=== PATIENT | male | born 2000 | race Caucasian/White ===

== ENCOUNTER 2025-03-17 10:41 | Outpatient (CLI) | payer OTHER, SELFPAY ==
--- OUTSIDE RECORDS SUMMARY | 2025-03-17 11:23 | XMS_ITS | Clinical Summary ---
Author Organization [facility] Address [address] [place] [address] Care Team Providers Care Consulting Group Analyst Name Role Phone Unknown, Notinfile Primary Care Provider Unavail able Allergies No known active allergies Medications No known medications Active Problems Problem Noted Date Diagnosed Date Peritonsillar abscess 10/31/2023 Medical History Medical History Date Comments Adhd Social History Tobacco Use Types Packs/Day Years Used Date Smoking Tobacco: Never Smokeless Tobacco: Never Tobacco Cessation:Counseling Given: Not Answered [facility] Utilities Answer Date Recorded In the past 12 months has Connected, eyeQ, oil, or water Docur[employer] threatened to shut off services in your home? No 11/01/2023 Social Connection and Isolation Panel Answer Date Recorded In a typical week, how many times do you talk on the phone with family, friends, or neighbors? More than three times a week 11/01/2023 How often do you get togethe r with friends or relatives? More than three times a week 11/01/2023 How often do you attend chur ch or episcopal services? Never 11/01/2023 Do you belong to any clubs o r organizations such as gnosticist groups, unions, fraternal or athletic groups, or school groups? No 11/01/2023 How often do you attend meet ings of the clubs or organizations you belong to? Never 11/01/2023 Are you , , di vorced, , never , or living with a partner? Living with partner 11/01/2023 AUDIT-C Answer Date Recorded Q1: How often do you have a drink containing alcohol? Never 10/31/2023 Q2: How many drinks containi ng alcohol do you have on a typical day when you are drinking? Patient does not drink Q3: How often do you have si x or more drinks on one occasion? Never 10/31/2023 Overall Financial Resource Strain (CARDIA) Answe r Date Recorded How hard is it for you to pa y for the very basics like food, housing, medical care, and heating? Not hard at all 11/01/2023 Hunger Vital Sign Answer Date Recorded Within the past 12 months, y ou worried that your food would run out before you got the money to buy more. Never true 11/01/19 24 Within the past 12 months, t he food you bought just didn't last and you didn't have money to get more. Never true 11/01/2023 PRAPARE - Transportation Answer Date Re corded In the past 12 months, has l ack of transportation kept you from medical appointments or from getting medications? No 10/10 In the past 12 months, has l ack of transportation kept you from meetings, work, or from getting things needed for daily living? No 11/01/2023 Housing Stability Vital Sign Answer Bonifacio e Recorded In the last 12 months, was t here a time when you were not able to pay the mortgage or rent on time? No 11/01/2023 In the past 12 months, how m any times have you moved where you were living? 1 11/01/2023 At any time in the past 12 m [facility], were you homeless or living in a fdc (including now)? No 11/01/2023 Personal Safety Answer Date Recorded Have you ever been in or are you currently in a harmful physical or emotional relationship or is someone making you feel afraid or unsafe? Yes 10/31/2023 Sex and Gender Information Value Date Recorded Sex Assigned at Not on file Legal Sex Male 12:10 AM CDT Gender Identity Not on file Sexual Orientation Not on file Last Filed Vital Signs Vital Sign Reading Time Taken Comments Blood Pressure 147/71 11/01/2023 7:19 PM CDT Pulse 70 11/01/2023 8:05 PM CDT Temperature 36.6 C (97.9 F) 11/01/2023 7:19 PM CDT Respiratory Rate 18 11/01/2023 7:19 PM CDT Oxygen Saturation 100% 11/01/2023 7:19 PM CDT Inhaled Oxygen Concentration - - Weight 103.8 kg (228 lb 12.8 oz) 10/31/2023 7:48 AM CDT Height 177.8 cm (5' 10) 10/31/2023 7:48 AM CDT Body Mass Index 32.83 10/31/2023 7:48 AM CDT Plan of Treatment Health Maintenance Due Date Last Done Comments Depression Screening 2002 Regular Well Visit/Exam 18-64 2020 DTaP/Tdap/Td Vaccine (7 - Td or Tdap) 12/20/2022 12/20/2012, 12/22/2007, 02/16/2004, Additional history exists Influenza Vaccine (#1) 2025 , 07/07/2019, 04/14/2018, Additional history exists Hepatitis B Screening Completed 03/30/2003 , 03/30/2003, 2002, Additional history exists Pneumococcal vaccine <65 Completed 005, 03/30/2003, 2002, Additional history exists Varicella Vaccines Completed 12/22/2007, 02/16/2004 HPV Vaccines Completed 04/17/2015, 10/2014, 03/15/2014 Meningococcal B Vaccine Completed 06/03/2018, 04/28 Hepatitis C Screening Completed 10/31/2023 Procedures Procedure Name Priority Date/Time Associated Diagnosis Comments HEPATITIS PANEL, ACUTE Add-On 10/31/2023 12:59 PM CDT from Last 3 Months or Most Recently Relevant to Health Maintenance Results * Hepatitis panel, acute Blood (10/31/2023 12:59 PM CDT) Hep A IgM Nonreactive Nonreactive Comment: Interpretive Data: If Hep A IgM Ab is reported as Equivocal, a new sample should be drawn in two weeks for testing. Current interpretive data was last revised on 19. Hep B core IgM Nonreactive Nonreactive JACK Comment: Interpretive Data If HepB Core IgM Ab is reported as Equivocal, a new sample should be drawn in two weeks for testing. Current interpretive data was last revised on 19. Hep C Ab Nonreactive Nonreactive JACK Comment: Antibodies to HCV not detected. Does NOT exclude the possibility of recent exposure to HCV. Current interpretive data was last revised on 22 Interpretive Data Nonreactive: Antibodies to HCV not detected. Does NOT exclude the possibility of recent exposure to HCV. Equivocal: Equivocal for HCV antibodies. Supplemental molecular testing will be automatically performed to determine infection status in accordance with current CDC screening recommendations. Reactive: Positive for HCV antibodies. This may represent current or past HCV infection. Supplemental molecular testing will be automatically performed to determine current infection status in accordance with current CDC screening recommendations. Interpretive data was last revised on 2019. HepBsAg Nonreactive Nonreactive JACK CONTEH Blood 10/31/2023 12:5 9 PM CDT 10/31/2023 1:06 PM CDT Marianne Self NP LAB MICROBIOLOGY - G ENERAL ORDERABLES Final Result JACK CONTEH [address] [facility] Department [place] [address] from Last 3 Months or Most Recently Relevant to Health Maintenance Insurance Advance Directives For more information, please contact: [phone] * Full Code (Latest Code Status on File) Date Activated Date Inactivated Comments 10/31/2023 6:52 AM 11/02/2023 3:51 AM Care Teams Consulting Group Analyst Relationship Specialty Start Date End Date Unknown, Notinfile PCP - General 10/31/23
--- OUTSIDE RECORDS SUMMARY | 2025-03-17 11:23 | XMS_ITS | Patient Health Record ---
Author Organization [facility] Address [address] [address] Care Team Providers Care Post Hole Digging Machine Operator Name Role Phone Sanam Khan Unavailable [phone] Reason For Referral No Information Medications Medication SIG (Take, Route, Frequency, Duration) Notes Start Date End Date Status Adderall 20 MG Tablet take 1 tablet by o ral route 3x a day at 7 am, noon and 4pm Oral ([facility]) 12/02/2013 Active Amoxicillin 500 MG Tablet take 1 tablet (500MG) by oral route 3 times every day for 1 week Oral ([facility]) 10/26/2013 Active RisperDAL 0.25 MG Tablet take 1 Tablet b y oral route 2 times every day Oral ([facility]) 10/26/2013 Active KP Melatonin 3 MG Tablet take one tablet at bedtime Oral ([facility]) 04/01/2013 Active Immunizations Vaccine Route Administration Date Status Comme nts Non VFC Engerix B-Peds Unknown 2002 Administered Status:Completed Non VFC Engerix B-Peds Unknown 2002 Administered Status:Completed Non-VFC MMR II Unknown 04/21/2003 Administered Status:C ompleted Non-VFC MMR II Unknown 12/22/2007 Administered Status:C ompleted Pneumococcal conjugate PCV 7 Unknown 2002 Administered Status:Completed Pneumococcal conjugate PCV 7 Unknown 2002 Administered Status:Completed Pneumococcal conjugate PCV 7 Unknown 03/30/2003 Administered Status:Completed Pneumococcal conjugate PCV 7 Unknown 08/09/2004 Administered Status:Completed VFC Boostrix Unknown 12/20/2012 Administered Status:Com pleted VFC Comvax Unknown 03/30/2003 Administered Status:Compl eted VFC Daptacel Unknown 2002 Administered Status:Com pleted VFC Daptacel Unknown 2002 Administered Status:Com pleted VFC Daptacel Unknown 03/30/2003 Administered Status:Com pleted VFC Daptacel Unknown 02/16/2004 Administered Status:Com pleted VFC Daptacel Unknown 12/22/2007 Administered Status:Com pleted VFC IPV Unknown 2002 Administered Status:Compl eted VFC IPV Unknown 2002 Administered Status:Compl eted VFC IPV Unknown 04/21/2003 Administered Status:Compl eted VFC IPV Unknown 12/22/2007 Administered Status:Compl eted VFC Varivax Unknown 02/16/2004 Administered Status:Comp leted VFC Varivax Unknown 12/22/2007 Administered Status:Comp leted X Hiberix Unknown 2002 Administered Status:Compl eted X Hiberix Unknown 2002 Administered Status:Compl eted X Hiberix Unknown 02/16/2004 Administered Status:Compl eted Social History Social History [facility] Social Info Question Answer Notes Household/Enviromental Risk Factors: Any Patient/Famil y Concerns : No Do you have any social/cultu ral characteristics? Social Characteristics: Yes Highest level of education: Graduated High School Concerns with daily living situations: None Support from family/friends: Yes Participation in community activities: No Cultural Characteristics: No Communication Barriers Are: None Assessment of Health Literacy Understands how to take medication Yes Understands risks/side effects of medication Yes Drugs/Alcohol: Social Info Question Answer Notes Caffeine Intake: more than 4 cups per day Tea Problems Problem Type SNOMED Code ICD Code Onset Dates Problem Status W/U Status Risk Notes Problem Learning difficulties (312145035) Other specific developmental learning difficulties (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
--- OUTSIDE RECORDS SUMMARY | 2025-03-17 11:23 | XMS_ITS | Encounter Summary ---
Author Organization [facility] Address [address] [place] [address] Care Team Providers Care Button Sewing Machine Operator Name Role Phone Unknown, Notinfile Primary Care Provider Unavail able Encounter Details Date Type Department Care Team (Late st Contact Info) Description 11/02/[address] [address] Angelica Machado RN Social History Tobacco Use Types Packs/Day Years Used Date Smoking Tobacco: Never Smokeless Tobacco: Never [facility] Utilities Answer Date Recorded In the past 12 months has [employer], gas, oil, or water [employer] threatened to shut off services in your [...] often do you attend chur ch or episcopalian services? Never 11/01/2023 Do you belong to any clubs o r organizations such as buddhist groups, unions, fraternal or athletic groups, or [...] any time in the past 12 m [facility], were you homeless or living in a penitentiary (including now)? No 11/01/2023 Personal Safety Answer [...] on file Sexual Orientation Not on file documented as of this encounter Plan of Treatment Not on file documented as of this encounter Visit Diagnoses Not on filedocumented in this encounter Care Teams Button Sewing Machine Operator Relationship Specialty Start Date End Date Unknown, Notinfile PCP - General 10/31/23 documented as of this encounter
== END 2025-03-17 10:42 | disposition home or self-care (01) ==
LOC: ANHAUDIO 10:43
PROVIDERS: PCP Otolaryngology; Visit Provider Otolaryngology
DX: H90.3 Sensorineural hearing loss, bilateral (principal); H61.23 Impacted cerumen, bilateral
CPT/HCPCS: 92557; 92567